=== PATIENT | female | born 1995 | race African-American/Black ===

== ENCOUNTER 2016-04-23 21:48 | Emergency (ER) | payer OTHER ==
[~2016-04-23] VITALS: Ht 172.7 cm; Wt 59.0 kg
[~2016-04-23 21:48] MED LIST: MACR100C PO; PYRI200T4 PO; Z.0.BCPILL PO; ZOFR4TAB PO
[2016-04-23 21:50] VITALS: BP 120/76; PULSE 118; RESP 16; TEMP 98.3; O2SAT 98
--- NOTE | 2016-04-23 22:39 | PD ---
HPI Chief Complaint: Injury Time Seen by Provider: 22:36 Travel History International Travel<30 days: No Contact w/Intl Traveler<30days: No Traveled to known affect area: No History of Present Illness HPI 21-year-old black female presents to emergency department with complains of pain in the laceration between her right fourth and fifth toe which occurred prior to arrival. She states that she accidentally kicked her bed frame in bare feet are to arrival. She is up-to-date with immunizations. She states the pain is mild. She was concerned due to the laceration and bleeding. She denies any numbness or tingling. No other injury. PFSH Past Medical History Asthma: Yes Diminished Hearing: No Tetanus Vaccination: < 5 Years Influenza Vaccination: No ?: Not LMP: 04/17/16 : 0 Past Surgical History Surgical History: No Previous Surgery Social History Alcohol Use: Yes (SOCIALLY) Tobacco Use: No Substance Use: Yes Allergies-Medications (Allergen,Severity, Reaction): Coded Allergies: White Fish (Verified Allergy, Severe, HIVES, 04/23/16) Reported Meds & Prescriptions Reported Meds & Active Scripts Active Diclofenac Sodium DR (Diclofenac Sodium) 50 Mg Tabdr 50 Mg PO TID Review of Systems Except as stated in HPI: all other systems reviewed are Neg Physical Exam Narrative GENERAL: This is a well-nourished, well-developed patient, in no apparent distress. SKIN: No rashes, ecchymoses or lesions. Warm and dry. HEAD: Atraumatic. Normocephalic. EYES: PERRL, EOMI, no discharge or injection. No scleral icterus. EARS: Clear NOSE: Nasal turbinates appear normal. THROAT: Mucosa pink and moist. Airway patent. NECK: Trachea midline. supple, moves head freely. LUNGS: Clear to auscultation. CV: Regular in rhythm. ABDOMEN: Soft nontender. EXT: No clubbing cyanosis or edema. Examination of the right foot reveals a 1.5 cm laceration to the interdigital space of the fourth and fifth right toes. She has intact sensation with good distal pulses. Good Refill. She has complaints of mild tenderness in the little toe. The fourth toe is unremarkable. No nailbed injuries. Data Data Last Documented VS Vital Signs Date Time Temp Pulse Resp B/P Pulse Ox O2 Delivery O2 Flow Rate FiO2 04/23/16 21:50 98.3 118 16 120/76 98 Room Air Orders Toe (Min 2vws) (04/23/16 22:35) Acetamin-Hydrocod 325-5 Mg ([place] 5-325 (04/23/16 22:45) MDM Medical Decision Making Medical Screen Exam Complete: Yes Emergency Medical Condition: Yes Medical Record Reviewed: Yes Interpretation(s) Right little toe: Negative for acute bony injury Differential Diagnosis MDM: High Differential diagnoses: Fracture, sprain, strain, dislocation, contusion, neurovascular injury Narrative Course Patient is given Lortab 5 mg by mouth. X-ray of the right foot little toe X-ray is negative. Patient's toe was cleaned cleansed copiously. Toes are gilbert taped and a large bulky dressing applied. This is right foot laceration-nonsutured, contusion right foot. Diagnosis Primary Impression: right foot laceration-nonsutured Additional Impression: Contusion of right foot Qualified Code: S90.31XA - Contusion of right foot, initial encounter Patient Instructions: General Instructions, Narcotic given in the ED Additional Instructions: Rest. Elevation. Keep the dressing on in clean and dry for the next 2-3 days. Remove the dressing in 2-3 days then perform local wound care with soap, water, Neosporin. Diclofenac for pain. Recheck with the clinic at school or by her primary care doctor in the next 5-7 days or return to the ER if any problems Med/Other Pt SpecificInfo: Prescription(s) given, Wound Care Scripts Diclofenac Sodium DR 50 Mg Tabdr50 Mg PO TID #21 TAB Prov:Dewayne Velez MD 04/23/16 Disposition: 01 DISCHARGE HOME Condition: Stable Ike Diaz Apr 23, 2016 22:39
[2016-04-23] MEDS ORDERED: DICL50TA3 PO (22:40)
[2016-04-23] MEDS ORDERED: ACETAMINOPHEN/HYDROcodone 325 MG/5 MG TAB PO ONE (22:45)
--- NOTE | 2016-04-23 23:00 | RADRPT ---
EXAM DATE/TIME: 04/23/2016 23:04 [facility] COMPARISON: No previous studies available for comparison. INDICATIONS : Right 5th toe pain, hit on chair MEDICAL HISTORY : None. SURGICAL HISTORY : None. ENCOUNTER: Initial ACUITY: 1 day PAIN SCORE: 8/10 LOCATION: Right 5th toe FINDINGS: Examination of the fifth digit of the right foot demonstrates no evidence of fracture or dislocation. No radiopaque foreign bodies are seen. The soft tissues are intact. CONCLUSION: Unremarkable examination of the right fifth toe. Kendell Garham MD on April 23, 2016 at 22:58 Board Certified Radiologist. This report was verified electronically.
== END 2016-04-23 23:31 | disposition home or self-care (01) ==
LOC: NEPB 21:48
DX: S91.311A Laceration without foreign body, right foot, initial encounter (principal); S90.31XA Contusion of right foot, initial encounter; Z87.09 Personal history of other diseases of the respiratory system; W22.09XA Striking against other stationary object, initial encounter
CPT/HCPCS: 73660; 99283

== ENCOUNTER 2016-07-03 10:27 | Emergency (ER) | payer OTHER ==
[~2016-07-03] VITALS: Ht 175.3 cm; Wt 65.0 kg
[~2016-07-03 10:27] MED LIST changes: +DICL50TA3 PO; -MACR100C PO; -PYRI200T4 PO; -Z.0.BCPILL PO; -ZOFR4TAB PO
[2016-07-03 10:28] VITALS: BP 146/85; PULSE 90; RESP 15; TEMP 98.2; O2SAT 100
[2016-07-03] MEDS ORDERED: SODIUM CHLORID 0.9% 500 ML INJ 500 ML IV ONE (10:45)
[2016-07-03] MEDS ORDERED: LORazepam 2 MG/ML VIAL IV PUSH ONE (10:45)
[2016-07-03] MEDS ORDERED: SODIUM CHLORIDE 0.9% FLUSH 10 ML FLUSH IVF PRN (10:45)
--- NOTE | 2016-07-03 10:50 | PD ---
HPI Chief Complaint: GI Complaint Time Seen by Provider: 10:44 Travel History International Travel<30 days: No Contact w/Intl Traveler<30days: No Traveled to known affect area: No History of Present Illness HPI The patient is a 21-year-old [place] female who presents to the emergency department for chest pain, shortness of breath, nausea, vomiting, and abdominal pain. The patient states she is under a lot of stress recently, recently graduated from college. The patient is a territory manager general sales at [employer], states she takes on more at work that she thinks she can handle. She also states that one of her friends recently became and had an , she saw her friend cry, states she felt her patient's grief as well. The patient also states she recently broke up with her boyfriend which is increased her stress level. She also states that the family member recently had an accident in the 3 -year-old ruptured his spleen. The patient states she needs to get back to [place] to see her family. The patient was very tearful and thinks her symptoms are related to stress. She denies any history of pulmonary embolism or DVT. The sense of an ongoing for 3 days, constant, occasionally awaken her at night, and seemed to be exacerbated by stress. PFSH Past Medical History Asthma: Yes (EXERCISE INDUCED) Diminished Hearing: No ?: Unknown LMP: 06/18/16 : 0 Past Surgical History Surgical History: No Previous Surgery Social History Alcohol Use: Yes (SOCIALLY) Tobacco Use: No Substance Use: Yes Allergies-Medications (Allergen,Severity, Reaction): Coded Allergies: White Fish (Verified Allergy, Severe, HIVES, 04/23/16) Reported Meds & Prescriptions Reported Meds & Active Scripts Active No Active Prescriptions or Reported Medications Review of Systems Except as stated in HPI: all other systems reviewed are Neg HENT: No: Lightheadedness Cardiovascular: Positive: Chest Pain or Discomfort Respiratory: Positive: Shortness of Breath Gastrointestinal: Positive: Nausea, Vomiting, Diarrhea, Abdominal Pain Genitourinary: No: Dysuria Neurologic: No: Dizziness Psychiatric: Positive: Other (as noted in the history of present illness) Physical Exam Narrative GENERAL: Awake, alert, tearful 21-year-old female who appears her stated age and is in no acute respiratory distress. The patient is crying during the interview. SKIN: Focused skin assessment warm/dry. HEAD: Atraumatic. Normocephalic. EYES: Pupils equal and round. No scleral icterus. No injection or drainage. ENT: No nasal bleeding or discharge. Mucous membranes pink and moist. NECK: Trachea midline. No JVD. CARDIOVASCULAR: Regular rate and rhythm. No murmur appreciated. Heart rate in the 80s. RESPIRATORY: No accessory muscle use. Clear to auscultation. Breath sounds equal bilaterally. GASTROINTESTINAL: Abdomen soft, non-tender, nondistended. No rebound tenderness. MUSCULOSKELETAL: No obvious deformities. No clubbing. No cyanosis. No edema. NEUROLOGICAL: Awake and alert. No obvious cranial nerve deficits. Motor grossly within normal limits. Normal speech. Nonfocal. PSYCHIATRIC: Tearful, insight and judgment appear normal. Data Data Last Documented VS Vital Signs Date Time Temp Pulse Resp B/P Pulse Ox O2 Delivery O2 Flow Rate FiO2 07/03/16 10:28 98.2 90 15 146/85 100 Orders Electrocardiogram (07/03/16 ) Electrocardiogram (07/03/16 10:44) Ckmb (Isoenzyme) Profile (07/03/16 10:44) Complete Blood Count With Diff (07/03/16 10:44) Comprehensive Metabolic Panel (07/03/16 10:44) Troponin I (07/03/16 10:44) Ecg Monitoring (07/03/16 10:44) Bilateral Bp Monitoring (07/03/16 10:44) Iv Access Insert/Monitor (07/03/16 10:44) Oximetry (07/03/16 10:44) Oxygen Administration (07/03/16 10:44) Sodium Chloride 0.9% Flush (Ns Flush) (07/03/16 10:45) Sodium Chlorid 0.9% 500 Ml Inj (Ns 500 M (07/03/16 10:45) Lorazepam Inj (Ativan Inj) (07/03/16 10:45) CKMB (07/03/16 10:57) CKMB% (07/03/16 10:57) Labs Laboratory Tests Test 07/03/16 10:57 White Blood Count 4.2 TH/MM3 Red Blood Count 5.18 MIL/MM3 Hemoglobin 14.3 GM/DL Hematocrit 43.8 % Mean Corpuscular Volume 84.6 FL Mean Corpuscular Hemoglobin 27.7 PG Mean Corpuscular Hemoglobin 32.7 % Concent Red Cell Distribution Width 13.7 % Platelet Count 240 TH/MM3 Mean Platelet Volume 8.5 FL Neutrophils (%) (Auto) 35.3 % Lymphocytes (%) (Auto) 53.3 % Monocytes (%) (Auto) 9.1 % Eosinophils (%) (Auto) 1.3 % Basophils (%) (Auto) 1.0 % Neutrophils # (Auto) 1.5 TH/MM3 Lymphocytes # (Auto) 2.2 TH/MM3 Monocytes # (Auto) 0.4 TH/MM3 Eosinophils # (Auto) 0.1 TH/MM3 Basophils # (Auto) 0.0 TH/MM3 CBC Comment DIFF FINAL Differential Comment Sodium Level 140 MEQ/L Potassium Level 3.9 MEQ/L Chloride Level 106 MEQ/L Carbon Dioxide Level 22.9 MEQ/L Anion Gap 11 MEQ/L Blood Urea Nitrogen 11 MG/DL Creatinine 0.68 MG/DL Estimat Glomerular Filtration 130 ML/MIN Rate Random Glucose 74 MG/DL Calcium Level 9.2 MG/DL Total Bilirubin 0.9 MG/DL Aspartate Amino Transf 25 U/L (AST/SGOT) Alanine Aminotransferase 14 U/L (ALT/SGPT) Alkaline Phosphatase 46 U/L Total Creatine Kinase 229 U/L Creatine Kinase MB 1.4 NG/ML Creatine Kinase MB % 0.6 % Troponin I LESS THAN 0.02 NG/ML Total Protein 7.8 GM/DL Albumin 4.5 GM/DL [facility] Medical Decision Making Medical Screen Exam Complete: Yes Emergency Medical Condition: Yes Medical Record Reviewed: Yes Interpretation(s) EKG reveals sinus tachycardia with a heart rate of 102. No ischemic changes noted. Laboratory Tests Test 07/03/16 10:57 White Blood Count 4.2 TH/MM3 Red Blood Count 5.18 MIL/MM3 Hemoglobin 14.3 GM/DL Hematocrit 43.8 % Mean Corpuscular Volume 84.6 FL Mean Corpuscular Hemoglobin 27.7 PG Mean Corpuscular Hemoglobin 32.7 % Concent Red Cell Distribution Width 13.7 % Platelet Count 240 TH/MM3 Mean Platelet Volume 8.5 FL Neutrophils (%) (Auto) 35.3 % Lymphocytes (%) (Auto) 53.3 % Monocytes (%) (Auto) 9.1 % Eosinophils (%) (Auto) 1.3 % Basophils (%) (Auto) 1.0 % Neutrophils # (Auto) 1.5 TH/MM3 Lymphocytes # (Auto) 2.2 TH/MM3 Monocytes # (Auto) 0.4 TH/MM3 Eosinophils # (Auto) 0.1 TH/MM3 Basophils # (Auto) 0.0 TH/MM3 CBC Comment DIFF FINAL Differential Comment Sodium Level 140 MEQ/L Potassium Level 3.9 MEQ/L Chloride Level 106 MEQ/L Carbon Dioxide Level 22.9 MEQ/L Anion Gap 11 MEQ/L Blood Urea Nitrogen 11 MG/DL Creatinine 0.68 MG/DL Estimat Glomerular Filtration 130 ML/MIN Rate Random Glucose 74 MG/DL Calcium Level 9.2 MG/DL Total Bilirubin 0.9 MG/DL Aspartate Amino Transf 25 U/L (AST/SGOT) Alanine Aminotransferase 14 U/L (ALT/SGPT) Alkaline Phosphatase 46 U/L Total Creatine Kinase 229 U/L Creatine Kinase MB 1.4 NG/ML Creatine Kinase MB % 0.6 % Troponin I LESS THAN 0.02 NG/ML Total Protein 7.8 GM/DL Albumin 4.5 GM/DL Differential Diagnosis Different diagnosis includes stress reaction, pulmonary embolism, acute coronary syndrome, GERD, esophageal spasm, gastritis, anxiety, panic attack, just in reaction. Narrative Course IV was established, labs are drawn and sent, and the patient was placed on cardiac telemetry monitoring and continuous pulse oximetry monitoring. EKG was ordered and interpreted. Patient was administered IV fluids and Ativan 0.5 mg intravenously. I had a discussion with the patient at bedside, she believes her symptoms most likely are related to recent stress in her life. Labs are unremarkable except for mildly elevated CPK, troponin is negative. Patient's heart rate came down into the 80s. The patient will be discharged home, she is advised to follow-up with her primary physician. She was reevaluated at 11:40 AM, she had stopped crying, she states she will call her mother upon discharge. Diagnosis Primary Impression: Stress reaction Patient Instructions: General Instructions Additional Instructions: Follow-up with your primary physician. Work excuse for 3 days. Call your family for support. Scripts No Active Prescriptions or Reported Meds Disposition: DISCHARGE HOME Condition: Stable Dewayne Velez MD July 03, 2016 10:50
[2016-07-03 11:12] LABS: AUTOMATED NEUTROPHIL # 1.5 TH/MM3 (1.8-7.7); EOSINOPHIL # 0.1 TH/MM3 (0-0.4); EOSINOPHIL % 1.3 % (0.0-4.0); HEMATOCRIT 43.8 % (35.0-46.0); HEMO FLAGS DIFF FINAL; LYMPH % 53.3 % (9.0-44.0); LYMPHOCYTE # 2.2 TH/MM3 (1.0-4.8); MEAN CELL VOLUME 84.6 FL (80.0-100.0); MEAN CORPUSCULAR HEMOGLOBIN 27.7 PG (27.0-34.0); MEAN CORPUSCULAR HGB CONC 32.7 % (32.0-36.0); MONO % 9.1 % (0.0-8.0); NEUT % 35.3 % (16.0-70.0); PLATELET COUNT 240 TH/MM3 (150-450); RED BLOOD COUNT 5.18 MIL/MM3 (4.00-5.30); RED CELL DISTRIBUTION WIDTH 13.7 % (11.6-17.2); WHITE BLOOD COUNT 4.2 TH/MM3 (4.0-11.0)
[2016-07-03 11:21] LABS: ALT (GPT) 14 U/L (10-53); ANION GAP 11 MEQ/L (5-15); AST (GOT) 25 U/L (15-37); BICARBONATE 22.9 MEQ/L (21.0-32.0); BLOOD UREA NITROGEN 11 MG/DL (7-18); CHLORIDE 106 MEQ/L (98-107); GLOMERULAR FILTRATION RATE 130 ML/MIN (>89); POTASSIUM 3.9 MEQ/L (3.5-5.1); SODIUM (NA) 140 MEQ/L (136-145)
[2016-07-03 11:25] LABS: ALKALINE PHOSPHATASE 46 U/L (45-117); CREATINE KINASE 229 U/L (26-192); TOTAL BILIRUBIN ADULT 0.9 MG/DL (0.2-1.0)
[2016-07-03 11:37] LABS: CKMB 1.4 NG/ML (0.5-3.6)
[2016-07-03 12:00] VITALS: BP 130/66; PULSE 90; RESP 14; O2SAT 97
--- NOTE | 2016-07-04 22:04 | EKG ---
Date Performed: 07/03/2016 Time Performed: 10:45:17 PTAGE: 21 years EKG: SINUS TACHYCARDIA POSSIBLE RIGHT VENTRICULAR CONDUCTION DELAY ABNORMAL RHYTHM ECG NO PREVIOUS TRACING DOCTOR: Elizabet Eason Interpretating Date/Time 07/04/2016 22:00:55
== END 2016-07-03 12:46 | disposition home or self-care (01) ==
LOC: NEPE 10:27
DX: F43.9 Reaction to severe stress, unspecified (principal)
CPT/HCPCS: 80053; 82550; 82552; 84484; 85025; 93005; 96361; 96374; 99285; J2060; J7040

== ENCOUNTER 2016-10-26 08:14 | Emergency (ER) | payer OTHER ==
[2016-10-26 08:15] VITALS: BP 146/89; PULSE 98; RESP 17; TEMP 98.4; O2SAT 98
[2016-10-26 08:29] VITALS: BP 135/100; PULSE 97; RESP 15; O2SAT 99
[2016-10-26] MEDS ORDERED: SODIUM CHLOR 0.9% 1000 ML INJ 1,000 ML IV SCH (08:37)
--- NOTE | 2016-10-26 08:44 | PD ---
HPI Chief Complaint: GI Complaint Time Seen by Provider: 08:27 Travel History International Travel<30 days: No Contact w/Intl Traveler<30days: No Traveled to known affect area: No History of Present Illness HPI The patient is a 21-year-old after Malag[place] female who presents to the emergency department for nausea, vomiting, and right upper quadrant abdominal pain. The patient has a one-week history of nausea and vomiting with decreased appetite, occasionally right upper quadrant abdominal pain which is worse with palpation and inspiration. She also complains of an episode of bright red blood in her stool and then later darker blood in her stool. She does have a 1 year history of mucus in her stool, and has been evaluated by her primary physician, Dr. Lissette Pizano. Patient saw her physician on Wednesday who recommended that she observe her symptoms. She denies any fever, chills, or sweats. She is currently on her menstrual cycle. The patient denies any fever , chills, or sweats. She denies any chest pain or shortness of breath. Symptoms are moderate, she denies exacerbation by eating, and there are no current alleviating factors. PFSH Past Medical History Asthma: Yes (sports induced) Diminished Hearing: No Influenza Vaccination: No ?: Not LMP: 10/24 : 0 Past Surgical History Surgical History: No Previous Surgery Social History Alcohol Use: No Tobacco Use: No Substance Use: No Allergies-Medications (Allergen,Severity, Reaction): Coded Allergies: Fish Containing Products (Unverified Allergy, Severe, HIVES, 10/26/16) Reported Meds & Prescriptions Reported Meds & Active Scripts Active No Active Prescriptions or Reported Medications Review of Systems Except as stated in HPI: all other systems reviewed are Neg General / Constitutional: No: Fever Cardiovascular: No: Chest Pain or Discomfort Respiratory: No: Shortness of Breath Gastrointestinal: Positive: Nausea, Vomiting, Abdominal Pain, Hematochezia, No : Diarrhea Genitourinary: No: Dysuria Skin: No Rash Physical Exam Narrative GENERAL: Awake, alert, pleasant 21-year-old female who appears her stated age and is in no acute respiratory distress. SKIN: Focused skin assessment warm/dry. HEAD: Atraumatic. Normocephalic. EYES: Pupils equal and round. No scleral icterus. No injection or drainage. ENT: No nasal bleeding or discharge. Mucous membranes pink and moist. NECK: Trachea midline. No JVD. CARDIOVASCULAR: Regular rate and rhythm. No murmur appreciated. Heart rate in the 90s. RESPIRATORY: No accessory muscle use. Clear to auscultation. Breath sounds equal bilaterally. GASTROINTESTINAL: Abdomen soft, tender to palpation right upper quadrant. Negative McBurney's. No suprapubic tenderness. Back: No CVA tenderness. Rectal: The exam was performed in the presence of a female nurse. No gross blood. Guaiac negative. MUSCULOSKELETAL: No obvious deformities. No clubbing. No cyanosis. No edema. NEUROLOGICAL: Awake and alert. No obvious cranial nerve deficits. Motor grossly within normal limits. Normal speech. PSYCHIATRIC: Appropriate mood and affect; insight and judgment normal. Data Data Last Documented VS Vital Signs Date Time Temp Pulse Resp B/P (MAP) Pulse Ox O2 Delivery O2 Flow Rate FiO2 10/26/16 09:16 92 15 130/99 (109) 99 Room Air 10/26/16 08:15 98.4 Orders Orders Complete Blood Count With Diff (10/26/16 08:37) Comprehensive Metabolic Panel (10/26/16 08:37) Lipase (10/26/16 08:37) Urinalysis - C+S If Indicated (10/26/16 08:37) Us Abdomen Gallbladder (10/26/16 ) Iv Access Insert/Monitor (10/26/16 08:37) Ecg Monitoring (10/26/16 08:37) Oximetry (10/26/16 08:37) Morphine Inj (Morphine Inj) (10/26/16 08:45) Ondansetron Inj (Zofran Inj) (10/26/16 08:45) Sodium Chlor 0.9% 1000 Ml Inj (Ns 1000 M (10/26/16 08:37) Sodium Chloride 0.9% Flush (Ns Flush) (10/26/16 08:45) Ed Urine Pregnancytest Poc (10/26/16 08:37) Urine Culture (10/26/16 09:00) Labs Laboratory Tests Test 10/26/16 08:45 10/26/16 09:00 White Blood Count 3.3 TH/MM3 Red Blood Count 4.85 MIL/MM3 Hemoglobin 13.6 GM/DL Hematocrit 42.6 % Mean Corpuscular Volume 87.9 FL Mean Corpuscular Hemoglobin 28.1 PG Mean Corpuscular Hemoglobin Concent 31.9 % Red Cell Distribution Width 13.2 % Platelet Count 194 TH/MM3 Mean Platelet Volume 8.3 FL Neutrophils (%) (Auto) 26.4 % Lymphocytes (%) (Auto) 62.2 % Monocytes (%) (Auto) 8.5 % Eosinophils (%) (Auto) 2.3 % Basophils (%) (Auto) 0.6 % Neutrophils # (Auto) 0.9 TH/MM3 Lymphocytes # (Auto) 2.0 TH/MM3 Monocytes # (Auto) 0.3 TH/MM3 Eosinophils # (Auto) 0.1 TH/MM3 Basophils # (Auto) 0.0 TH/MM3 CBC Comment AUTO DIFF Differential Total Cells Counted 100 Neutrophils % (Manual) 24 % Band Neutrophils % 1 % Lymphocytes % 58 % Monocytes % 4 % Eosinophils % 3 % Basophils % 1 % Neutrophils # (Manual) 0.8 TH/MM3 Differential Comment FINAL DIFF MANUAL Atypical Lymphocytes 9 % Platelet Estimate NORMAL Platelet Morphology Comment NORMAL Red Cell Morphology Comment NORMAL Blood Urea Nitrogen 10 MG/DL Creatinine 0.66 MG/DL Random Glucose 90 MG/DL Total Protein 7.2 GM/DL Albumin 3.9 GM/DL Calcium Level 8.6 MG/DL Alkaline Phosphatase 40 U/L Aspartate Amino Transf (AST/SGOT) 16 U/L Alanine Aminotransferase (ALT/SGPT) 11 U/L Total Bilirubin 0.9 MG/DL Sodium Level 139 MEQ/L Potassium Level 3.8 MEQ/L Chloride Level 108 MEQ/L Carbon Dioxide Level 22.8 MEQ/L Anion Gap 8 MEQ/L Estimat Glomerular Filtration Rate 134 ML/MIN Lipase 71 U/L Urine Color LIGHT-RED Urine Turbidity HAZY Urine pH 6.5 Urine Specific [place] 1.014 Urine Protein 30 mg/dL Urine Glucose (UA) NEG mg/dL Urine Ketones NEG mg/dL Urine Occult Blood LARGE Urine Nitrite NEG Urine Bilirubin NEG Urine Urobilinogen LESS THAN 2.0 MG/DL Urine Leukocyte Esterase SMALL Urine RBC /hpf Urine WBC 140 /hpf Urine Squamous Epithelial Cells 7 /hpf Urine Mucus FEW /lpf Microscopic Urinalysis Comment CULTURE INDICATED MDM Medical Decision Making Medical Screen Exam Complete: Yes Emergency Medical Condition: Yes Medical Record Reviewed: Yes Interpretation(s) Last Impressions Gall Bladder Ultrasound 10/26/16 0000 Signed Impressions: Service Date/Time: Wednesday, October 26, 2016 08:38 - CONCLUSION: Negative for gallstones. There is no intrahepatic delayed ductal dilatation. Jared Zavala MD FACR Laboratory Tests Test 10/26/16 08:45 10/26/16 09:00 White Blood Count 3.3 TH/MM3 Red Blood Count 4.85 MIL/MM3 Hemoglobin 13.6 GM/DL Hematocrit 42.6 % Mean Corpuscular Volume 87.9 FL Mean Corpuscular Hemoglobin 28.1 PG Mean Corpuscular Hemoglobin Concent 31.9 % Red Cell Distribution Width 13.2 % Platelet Count 194 TH/MM3 Mean Platelet Volume 8.3 FL Neutrophils (%) (Auto) 26.4 % Lymphocytes (%) (Auto) 62.2 % Monocytes (%) (Auto) 8.5 % Eosinophils (%) (Auto) 2.3 % Basophils (%) (Auto) 0.6 % Neutrophils # (Auto) 0.9 TH/MM3 Lymphocytes # (Auto) 2.0 TH/MM3 Monocytes # (Auto) 0.3 TH/MM3 Eosinophils # (Auto) 0.1 TH/MM3 Basophils # (Auto) 0.0 TH/MM3 CBC Comment AUTO DIFF Differential Total Cells Counted 100 Neutrophils % (Manual) 24 % Band Neutrophils % 1 % Lymphocytes % 58 % Monocytes % 4 % Eosinophils % 3 % Basophils % 1 % Neutrophils # (Manual) 0.8 TH/MM3 Differential Comment FINAL DIFF MANUAL Atypical Lymphocytes 9 % Platelet Estimate NORMAL Platelet Morphology Comment NORMAL Red Cell Morphology Comment NORMAL Blood Urea Nitrogen 10 MG/DL Creatinine 0.66 MG/DL Random Glucose 90 MG/DL Total Protein 7.2 GM/DL Albumin 3.9 GM/DL Calcium Level 8.6 MG/DL Alkaline Phosphatase 40 U/L Aspartate Amino Transf (AST/SGOT) 16 U/L Alanine Aminotransferase (ALT/SGPT) 11 U/L Total Bilirubin 0.9 MG/DL Sodium Level 139 MEQ/L Potassium Level 3.8 MEQ/L Chloride Level 108 MEQ/L Carbon Dioxide Level 22.8 MEQ/L Anion Gap 8 MEQ/L Estimat Glomerular Filtration Rate 134 ML/MIN Lipase 71 U/L Urine Color LIGHT-RED Urine Turbidity HAZY Urine pH 6.5 Urine Specific [place] 1.014 Urine Protein 30 mg/dL Urine Glucose (UA) NEG mg/dL Urine Ketones NEG mg/dL Urine Occult Blood LARGE Urine Nitrite NEG Urine Bilirubin NEG Urine Urobilinogen LESS THAN 2.0 MG/DL Urine Leukocyte Esterase SMALL Urine RBC /hpf Urine WBC 140 /hpf Urine Squamous Epithelial Cells 7 /hpf Urine Mucus FEW /lpf Microscopic Urinalysis Comment CULTURE INDICATED Differential Diagnosis Differential diagnosis includes acute cholecystitis, biliary colic, gastritis, pancreatitis, peptic ulcer disease, Crohn's disease, ulcerative colitis, GI bleed, pyelonephritis. Narrative Course IV was established, labs are drawn and sent, and the patient was placed on cardiac telemetry monitoring and continuous pulse oximetry monitoring. Ultrasound of the gallbladder was ordered. The patient was administered morphine, Zofran, and IV fluids. UA was sent to lab. UA reveals large amount of blood and 140 wbc's. Patient is currently on her menstrual cycle, may have underlying UTI. Bedside UA test was negative. Patient also has increase in lymphocytes, may have viral gastroenteritis. The patient was reassessed at 10:15 AM, her symptoms had significantly improved. Patient will be discharged home on Zofran and Bactrim. She is advised to follow-up with her primary physician and return if symptoms worsen or progress. Diagnosis Primary Impression: Gastroenteritis Additional Impression: UTI (urinary tract infection) Qualified Codes: N39.0 - Urinary tract infection, site not specified; R31.9 - Hematuria, unspecified Patient Instructions: General Instructions Additional Instructions: Medications as directed. Plenty of fluids to stay hydrated. Work excuse for 2 days. Follow-up with your primary physician. Please provide the patient a copy of her ultrasound results and lab results at discharge. Med/Other Pt SpecificInfo: Prescription(s) given Scripts Sulfamethoxazole-Trimethoprim (Bactrim DS) 800-160 Mg Tab 1 TAB PO BID for Infection, #14 TAB 0 Refills Prov: Dewayne Velez MD 10/26/16 Ondansetron Odt (Zofran Odt) 4 Mg Tab 4 MG SL Q6HR Y for Nausea/Vomiting, #7 TAB 0 Refills Prov: Dewayne Velez MD 10/26/16 Disposition: 01 DISCHARGE HOME Condition: Stable Dewayne Velez MD Oct 26, 2016 08:43
[2016-10-26] MEDS ORDERED: SODIUM CHLORIDE 0.9% FLUSH 10 ML FLUSH IV FLUSH PRN (08:45)
[2016-10-26] MEDS ORDERED: ONDANSETRON HCL 4 MG/2 ML VIAL IVP ONE (08:45)
[2016-10-26] MEDS ORDERED: MORPHINE SULFATE 4 MG/ML INJ IV PUSH ONE (08:45)
[2016-10-26 09:08] LABS: AUTOMATED NEUTROPHIL # 0.9 TH/MM3 (1.8-7.7); BASOPHIL % 0.6 % (0.0-2.0); EOSINOPHIL # 0.1 TH/MM3 (0-0.4); EOSINOPHIL % 2.3 % (0.0-4.0); HEMATOCRIT 42.6 % (35.0-46.0); LYMPH % 62.2 % (9.0-44.0); MEAN CELL VOLUME 87.9 FL (80.0-100.0); MEAN CORPUSCULAR HEMOGLOBIN 28.1 PG (27.0-34.0); MEAN CORPUSCULAR HGB CONC 31.9 % (32.0-36.0); MONO % 8.5 % (0.0-8.0); NEUT % 26.4 % (16.0-70.0); PLATELET COUNT 194 TH/MM3 (150-450); RED BLOOD COUNT 4.85 MIL/MM3 (4.00-5.30); RED CELL DISTRIBUTION WIDTH 13.2 % (11.6-17.2); WHITE BLOOD COUNT 3.3 TH/MM3 (4.0-11.0)
--- NOTE | 2016-10-26 09:15 | RADRPT ---
EXAM DATE/TIME: 10/26/2016 08:38 [facility] COMPARISON: No previous studies available for comparison. INDICATIONS : Right upper quadrant pain. MEDICAL HISTORY : Right upper quadrant pain. SURGICAL HISTORY : None. ENCOUNTER: Initial ACUITY: 1 week PAIN SCORE: 3/10 LOCATION: Right upper quadrant MEASUREMENTS: LIVER: 17.3 cm length COMMON DUCT: 3 mm RIGHT KIDNEY: 10.8 x 5.3 x 7.2 cm FINDINGS: LIVER: Normal echotexture without focal lesion or ductal dilatation. COMMON DUCT: No intraluminal mass or stone visualized. GALLBLADDER: Contains no stones, demonstrates no wall thickening or pericholecystic fluid. PANCREAS: The visualized portions are within normal limits. RIGHT KIDNEY: No evidence of hydronephrosis, stone, or mass. CONCLUSION: Negative for gallstones. There is no intrahepatic delayed ductal dilatation. Jared Zavala MD FACR on October 26, 2016 at 9:13 Board Certified Radiologist. This report was verified electronically.
[2016-10-26 09:16] VITALS: BP 130/99; PULSE 92; RESP 15; O2SAT 99
[2016-10-26 09:16] LABS: HEMO FLAGS AUTO DIFF
[2016-10-26 09:20] LABS: BLOOD, URINE LARGE (NEG); COMMENT (UR) CULTURE INDICATED; CULTURE IF INDICATED CULTURE INDICATED; GLUCOSE,URINE NEG (NEG); KETONE, URINE NEG (NEG); MUCUS URINE FEW /lpf (OCC); NITRITE,URINE NEG (NEG); PH, URINE 6.5 (5.0-8.5); SQUAMOUS EPITHELIAL CELL URINE 7 /hpf (0-5)
[2016-10-26 09:22] LABS: URINE COLOR LIGHT-RED (YELLW/STRAW)
[2016-10-26 10:02] LABS: ALT (GPT) 11 U/L (10-53); ANION GAP 8 MEQ/L (5-15); AST (GOT) 16 U/L (15-37); ATYPICAL LYMPHOCYTES 9 % (0-0); BANDS 1 % (0-6); BASOPHILS 1 % (0-2); BICARBONATE 22.8 MEQ/L (21.0-32.0); BLOOD UREA NITROGEN 10 MG/DL (7-18); CHLORIDE 108 MEQ/L (98-107); EOSINOPHILS 3 % (0-4); GLOMERULAR FILTRATION RATE 134 ML/MIN (>89); NEUTROPHIL # MANUAL DIFF 0.8 TH/MM3 (1.8-7.7); PLATELET ESTIMATE SMEAR NORMAL (NORMAL); PLATELET MORPHOLOGY NORMAL (NORMAL); POLYS (SEG NEUTROPHILS) 24 % (16-70); POTASSIUM 3.8 MEQ/L (3.5-5.1); SCAN/DIFF FINAL DIFF MANUAL; SODIUM (NA) 139 MEQ/L (136-145); WBC DIFF SAMPLE 100
[2016-10-26 10:04] LABS: ALKALINE PHOSPHATASE 40 U/L (45-117); TOTAL BILIRUBIN ADULT 0.9 MG/DL (0.2-1.0)
[2016-10-26] MEDS ORDERED: BACT800T5 PO (10:20)
[2016-10-26] MEDS ORDERED: ZOFR4TAB3 SL (10:20)
[2016-10-26 11:06] VITALS: BP 128/92
== END 2016-10-26 11:14 | disposition home or self-care (01) ==
LOC: NEPC 08:14
DX: K52.9 Noninfective gastroenteritis and colitis, unspecified (principal); N39.0 Urinary tract infection, site not specified; B96.89 Other specified bacterial agents as the cause of diseases classified elsewhere; R31.9 Hematuria, unspecified
CPT/HCPCS: 76705; 80053; 81001; 83690; 84703; 85007; 85027; 87086; 96374; 96375; 99285; J2270; J2405; J7030

== ENCOUNTER 2017-01-12 19:36 | Emergency (ER) | payer OTHER ==
[~2017-01-12 19:36] MED LIST changes: +BACT800T5 PO; -DICL50TA3 PO; +ZOFR4TAB3 SL
[2017-01-12 19:37] VITALS: BP 132/77; PULSE 98; RESP 16; TEMP 98.1; O2SAT 100
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
[2017-01-12] MEDS ORDERED: IBUPROFEN 800 MG TAB PO ONE (22:00)
[2017-01-12] MEDS ORDERED: ACETAMINOPHEN/HYDROcodone 325 MG/5 MG TAB PO ONE (22:00)
[2017-01-12] MEDS ORDERED: TETANUS/DIPHTHERIA TOXOID ADULT 0.5 ML VIAL IM ONE (22:00)
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
[2017-01-12] MEDS ORDERED: NAPR500 PO (22:02)
== END 2017-01-12 22:40 | disposition home or self-care (01) ==
LOC: NEPK 19:36
DX: S05.11XA Contusion of eyeball and orbital tissues, right eye, initial encounter (principal); S09.90XA Unspecified injury of head, initial encounter; G44.309 Post-traumatic headache, unspecified, not intractable; J45.990 Exercise induced bronchospasm; Y04.8XXA Assault by other bodily force, initial encounter; Z79.899 Other long term (current) drug therapy; Z23 Encounter for immunization
CPT/HCPCS: 70450; 70486; 84703; 90471; 90714